=== PATIENT | female | born 1990 | race Caucasian/White ===

== ENCOUNTER 2021-02-05 06:09 | Inpatient (IN) | payer OTHER ==
[~2021-02-05] VITALS: Ht 157.5 cm; Wt 87.1 kg
[2021-02-05 06:25] VITALS: BP 132/83
[2021-02-05 06:47] LABS: ABSOLUTE EOSINOPHILS 0.1 thou/uL (0.0-0.7); ABSOLUTE LYMPHOCYTES 4.6 thou/uL (0.8-5.3); ABSOLUTE MONOCYTES 0.8 thou/uL (0.0-1.2); ABSOLUTE NEUTROPHILS 6.9 thou/uL (1.6-8.1); BASOPHILS 0.4 %; HEMATOCRIT 39.8 % (37.0-47.0); HEMOGLOBIN 13.3 gm/dL (12.0-15.0); MCH 30.9 pg (26.0-34.0); MCHC 33.3 g/dL (28.0-37.0); MCV 92.8 fL (80.0-100.0); MONOCYTES 6.5 %; MPV 8.1 fl. (7.2-11.1); NUCLEATED RBCS 0 /100WBC; PLATELET COUNT* 296 thou/uL (150-400); POLYS 55.1 %; RBC 4.29 mil/uL (4.20-5.00); RDW-CV 13.3 % (10.5-14.5); WBC 12.5 thou/uL (4.0-11.0)
[2021-02-05 06:48] LABS: BE -3.2 mmol/L (-2 to +3); PCO2 33.6 mmHg (35.0-45.0); pH 7.407 (7.340-7.450)
[2021-02-05 06:50] LABS: PO2 129.4 mmHg (75.0-100.0)
[2021-02-05 06:57] LABS: CALCIUM 8.6 mg/dL (8.5-10.1); CREATININE 1.7 mg/dL (0.6-1.3); POTASSIUM 3.7 mmol/L (3.5-5.1)
[2021-02-05 07:01] LABS: ALBUMIN 3.9 g/dL (3.4-5.0); MAGNESIUM 1.9 mg/dL (1.8-2.4); TOTAL BILIRUBIN 0.2 mg/dL (<0.1-1.0); TOTAL PROTEIN 7.8 g/dL (6.4-8.2)
[2021-02-05 09:53] VITALS: BP 101/42
--- NOTE | 2021-02-05 10:33 | NUR ---
1010: PATIENT ADMITTED TO [facility] FROM THE ED VIA WHEELCHAIR ACCOMPANIED BY ED NURSE. ADMITTED FOR UNKNOWN ARESOL CHEMICAL EXPOSURE. ORIENTED TO ROOM AND FLOOR. CALL LIGHT WITHIN REACH. ALL QUESTIONS AND CONCERNS ADDRESSED.
--- NOTE | 2021-02-05 14:54 | NUR ---
cm s/w pt who was at bedside while pt seemingly slept. pt lives at home with her . pt is active and employeed and independent with cares. pt uses no dmes. , alirio, denies hx with hh or snf. cm to cont to follow to assist as needed.
[2021-02-05 15:02] LABS: URINE BILIRUBIN NEGATIVE (Negative); URINE BLOOD TRACE (Negative); URINE CLARITY CLEAR; URINE COLOR YELLOW; URINE GLUCOSE-RANDOM 1+ (Negative); URINE KETONES TRACE (Negative); URINE LEUKOCYTES-REFLEX NEGATIVE (Negative); URINE NITRITE-REFLEX NEGATIVE (Negative); URINE PROTEIN NEGATIVE (Negative); URINE SPECIFIC GRAVITY 1.015 (1.005-1.030); URINE UROBILINOGEN 0.2 E.U./dl (0.2-1.0)
[2021-02-05 15:13] LABS: AMP/METHAMP Negative (Negative); BARBITURATES Negative (Negative); BENZODIAZEPINES Negative (Negative); COCAINE Negative (Negative); METHADONE Negative (Negative); OPIATES Negative (Negative); PCP Negative (Negative); THC Negative (Negative)
[2021-02-05 16:00] VITALS: BP 126/87
--- NOTE | 2021-02-05 17:20 | NUR ---
PATIENT RESTING IN BED, SITTING UP EATING DINNER. FRIEND AT BEDSIDE, INVOLVED WITH CARES. IV TO LEFT AC, INFUSING NORMAL SALINE AT 80ML/HR. C/O HEADACHE, TYLENOL AND IBUPROFEN GIVEN X1. ZOFRAN X1 GIVEN. ALERT AND ORIENTED X4. BED IN LOW/LOCKED POSITION. CALL LIGHT WITHIN REACH. ALL QUESTIONS AND CONCERNS ADDRESSED.
[2021-02-05 20:00] VITALS: BP 112/70
[2021-02-06] VITALS: BP 125/85
[2021-02-06 04:00] VITALS: BP 105/78
[2021-02-06 04:20] LABS: HEMATOCRIT 39.5 % (37.0-47.0); MCH 30.9 pg (26.0-34.0); MCHC 32.9 g/dL (28.0-37.0); MCV 93.8 fL (80.0-100.0); MPV 8.6 fl. (7.2-11.1); NUCLEATED RBCS 0 /100WBC; PLATELET COUNT* 284 thou/uL (150-400); RBC 4.21 mil/uL (4.20-5.00); RDW-CV 13.5 % (10.5-14.5)
[2021-02-06 04:30] LABS: CALCIUM 8.6 mg/dL (8.5-10.1); POTASSIUM 3.9 mmol/L (3.5-5.1)
--- NOTE | 2021-02-06 04:58 | NUR ---
ASSUMED PT CARE AT 1910. NURSING ASSESSMENT COMPLETED AT START OF SHIFT. 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 HOURLY ROUNDING COMPLETED. C/O HEADACHE NOT RELEAVED BY ACETAMINOPHEN OR IBUPROFEN. DR. HILL NOTIFIED AND NEW ORDERS RECEIVED. SEE EMAR FOR DOCUMENTATION. IV FLUIDS INFUSING. CALL LIGHT WITHIN REACH.
[2021-02-06 06:22] LABS: ABSOLUTE LYMPHOCYTES 1.4 thou/uL (0.8-5.3); ABSOLUTE MONOCYTES 0.2 thou/uL (0.0-1.2); ABSOLUTE NEUTROPHILS 13.5 thou/uL (1.6-8.1); ANISOCYTOSIS 1+; PLATELET ESTIMATE ADEQUATE; POIKILOCYTOSIS 1+
[2021-02-06 08:10] VITALS: BP 139/83
--- NOTE | 2021-02-06 09:27 | EKG ---
[place] [address] ELECTROCARDIOGRAM REPORT Name: GREG WELCHANIVAL Marcial Room: [address] ADM IN .R.#: [id number] Admission: 02/05/21 Attend Phys: Albert Potter, Discharge: Date of : 88 Date of Service: 02/05/21621 Report #: [id number] THIS REPORT FOR: //name// [facility] ED Test Date: 2021-02-05 Test Time: 06:22:27 Pat Name: SYLVIE WELCH Department: Room: [facility] Gender: F Academic Services Coordinator: [place] : 1990 Requested By: Arsh Raymond Order Number: [id number] MD: Nguyễn Siu Measurements Intervals [place] Rate: 79 P: 40 ME: 141 QRS: -5 QRSD: 86 T: 35 QT: 380 QTc: 436 Interpretive Statements Sinus rhythm No previous ECG available for comparison Electronically Signed On 02-06-2021 9:27:42 CDT by Nguyễn Siu [email or web address] <ELECTRONICALLY SIGNED> By: Nguyễn Siu MD, [facility] 02/06/21 0927 1 1 Nguyễn Siu MD, [facility] /EPI
[2021-02-06 11:32] VITALS: BP 139/83
[2021-02-06] MEDS ORDERED: PROAIR HFA8.5 GM INH (11:59)
== END 2021-02-06 12:10 | disposition home or self-care (01) | DRG 918 ==
LOC: M.ERS 06:09 → M.2W 08:48 → M.TBA-ER 08:48 → M.2W 10:06
PROVIDERS: Personal Emergency Response Attendant; ADMIT Internal Medicine; ATTEND Internal Medicine
DX: T57.1X1A Toxic effect of phosphorus and its compounds, accidental (unintentional), initial encounter (principal); N17.9 Acute kidney failure, unspecified; J45.909 Unspecified asthma, uncomplicated; Y92.89 Other specified places as the place of occurrence of the external cause; Z20.822 Contact with and (suspected) exposure to COVID-19

== ENCOUNTER 2021-02-06 18:06 | Emergency (ER) | payer OTHER ==
[~2021-02-06 18:06] MED LIST: PROAIR HFA8.5 GM INH
== END 2021-02-06 19:22 | disposition home or self-care (01) ==
LOC: M.ERS 18:06
DX: Z02.89 Encounter for other administrative examinations (principal)